=== PATIENT | female | born 1945 | race Caucasian/White ===

== ENCOUNTER 2019-11-30 13:27 | Inpatient (IN) ==
[2019-12-01] MEDS ORDERED: *HR* Dextrose 50 % in Water (Syg) 50 ML SYRINGE IVP PRN (19:11)
[2019-12-01] MEDS ORDERED: D5% in Water 1,000 ML IVC PRN (19:11)
[2019-12-01] MEDS ORDERED: Dextrose Gel 15 GM/37.5 ML TUBE PO PRN ×2 (19:11)
[2019-12-01 19:42] LABS: Basophils # 0.1 K/mcL (0.0-0.2); Basophils % 0.8 %; Eosinophils # 0.7 K/mcL (0.0-0.6); Eosinophils % 9.3 %; Hemoglobin 11.8 g/dL (11.5-15.4); Immature Granulocytes % 1.4 % (0-4); Lymphocytes # 1.8 K/mcL (0.6-4.6); Lymphocytes % 25.6 %; Mean Corpuscular HGB Conc 32.8 g/dL (31.6-35.5); Mean Corpuscular Volume 85.5 fL (83.0-100.0); Mean Platelet Volume 10.4 fL (9.4-12.4); Monocytes # 0.9 K/mcL (0.0-1.3); Neutrophils # 3.6 K/mcL (1.6-8.9); Platelet Count 259 K/mcL (140-400); Red Blood Count 4.21 M/mcL (3.82-4.97); Segmented Neutrophils % 50.9 %; White Blood Count 7.1 K/mcL (4.3-11.1)
[2019-12-01 19:52] LABS: Anisocytosis 1+ (Not Present); Platelet Estimate Normal (Normal)
[2019-12-01 19:58] LABS: BUN/Creatinine Ratio 27 (6-26); Blood Urea Nitrogen 25 mg/dL (8-23); Calcium 9.9 mg/dL (8.6-10.3); Carbon Dioxide 26 mEq/L (23-29); Chloride 98 mEq/L (98-107); Glucose 196 mg/dL (70-105); Osmolality,Calculated 284 (280-300); Potassium 4.1 mEq/L (3.5-5.1); Sodium 132 mEq/L (136-145); eGFR For African Americans > 60 (> 60); eGFR For Non-African Americans > 60 (> 60)
[2019-12-01] MEDS ORDERED: Insulin DETEMIR 100 UNIT/ML per UNIT SQ ONE (21:00)
[2019-12-01] MEDS ORDERED: Mag Hydrox/Al Hydrox/Simeth 30 ML UDC PO PRN (21:02)
[2019-12-01] MEDS: Apixaban 5 MG TABLET PO SCH (22:23)
[2019-12-01] MEDS: Insulin LISPRO 300 UNITS/3 ML VIAL SQ SCH (22:28)
[2019-12-01] MEDS: Nystatin POWDER 30 GM BOTTLE TP SCH (22:30)
[2019-12-02] MEDS: Insulin LISPRO 300 UNITS/3 ML VIAL SQ SCH ×4 (08:55→20:27)
[2019-12-02] MEDS ORDERED: hydroCHLOROthiazide 25 MG TABLET PO SCH (09:00)
[2019-12-02] MEDS ORDERED: Spironolactone 25 MG TABLET PO SCH (09:00)
[2019-12-02] MEDS: *HR* Metformin 500 MG TABLET PO SCH ×2 (10:03→17:02)
[2019-12-02] MEDS: cephALEXin 500 MG CAPSULE PO SCH ×2 (10:03→20:20)
[2019-12-02] MEDS: Aspirin 81 MG TAB.CHEW PO SCH (10:03)
[2019-12-02] MEDS: Apixaban 5 MG TABLET PO SCH ×2 (10:04→20:20)
[2019-12-02] MEDS: Fluconazole 100 MG TABLET PO SCH (10:04)
[2019-12-02] MEDS: Nystatin POWDER 30 GM BOTTLE TP SCH ×2 (10:11→20:22)
[2019-12-02] MEDS: Insulin DETEMIR 100 UNIT/ML X5UNITS SQ SCH (20:27)
[2019-12-02] MEDS ORDERED: 0.9 % Sodium Chloride 1,000 ML IV ONE (23:27)
[2019-12-03 05:40] LABS: Basophils # 0.1 K/mcL (0.0-0.2); Basophils % 0.5 %; Eosinophils % 9.8 %; Hematocrit 32.1 % (35.3-44.9); Hemoglobin 10.3 g/dL (11.5-15.4); Immature Granulocytes % 1.8 % (0-4); Lymphocytes % 28.5 %; Mean Corpuscular HGB Conc 32.1 g/dL (31.6-35.5); Mean Corpuscular Hemoglobin 27.6 pg (28.0-33.3); Mean Corpuscular Volume 86.1 fL (83.0-100.0); Mean Platelet Volume 10.9 fL (9.4-12.4); Monocytes # 1.1 K/mcL (0.0-1.3); Monocytes % 10.1 %; Neutrophils # 5.1 K/mcL (1.6-8.9); Platelet Count 249 K/mcL (140-400); Red Blood Count 3.73 M/mcL (3.82-4.97); Red Cell Distribution Width 18.8 % (11.5-14.5); Segmented Neutrophils % 49.3 %; White Blood Count 10.4 K/mcL (4.3-11.1)
[2019-12-03 05:58] LABS: Calcium 9.1 mg/dL (8.6-10.3); Potassium 3.8 mEq/L (3.5-5.1)
[2019-12-03] MEDS: Insulin LISPRO 300 UNITS/3 ML VIAL SQ SCH ×4 (07:36→20:20)
[2019-12-03] MEDS: Fluconazole 100 MG TABLET PO SCH (07:55)
[2019-12-03] MEDS: *HR* Metformin 500 MG TABLET PO SCH ×2 (07:55→17:14)
[2019-12-03] MEDS: cephALEXin 500 MG CAPSULE PO SCH ×2 (07:55→20:19)
[2019-12-03] MEDS: Aspirin 81 MG TAB.CHEW PO SCH (07:55)
[2019-12-03] MEDS: Apixaban 5 MG TABLET PO SCH ×2 (07:55→20:20)
[2019-12-03] MEDS: Nystatin POWDER 30 GM BOTTLE TP SCH ×2 (07:56→20:20)
[2019-12-03] MEDS: Insulin DETEMIR 100 UNIT/ML X5UNITS SQ SCH (20:20)
[2019-12-04 05:35] LABS: Basophils # 0.1 K/mcL (0.0-0.2); Basophils % 0.5 %; Eosinophils # 1.1 K/mcL (0.0-0.6); Eosinophils % 10.7 %; Hematocrit 34.1 % (35.3-44.9); Hemoglobin 10.9 g/dL (11.5-15.4); Lymphocytes # 2.4 K/mcL (0.6-4.6); Mean Corpuscular Hemoglobin 27.5 pg (28.0-33.3); Mean Corpuscular Volume 86.1 fL (83.0-100.0); Mean Platelet Volume 10.8 fL (9.4-12.4); Monocytes # 0.9 K/mcL (0.0-1.3); Monocytes % 8.8 %; Neutrophils # 5.4 K/mcL (1.6-8.9); Platelet Count 254 K/mcL (140-400); Red Blood Count 3.96 M/mcL (3.82-4.97); Red Cell Distribution Width 18.6 % (11.5-14.5)
[2019-12-04] MEDS: Insulin LISPRO 300 UNITS/3 ML VIAL SQ SCH ×4 (09:07→21:32)
[2019-12-04] MEDS: *HR* Metformin 500 MG TABLET PO SCH ×2 (09:08→18:22)
[2019-12-04] MEDS: Nystatin POWDER 30 GM BOTTLE TP SCH ×2 (09:08→21:33)
[2019-12-04] MEDS: Apixaban 5 MG TABLET PO SCH ×2 (09:08→21:32)
[2019-12-04] MEDS: cephALEXin 500 MG CAPSULE PO SCH ×2 (09:08→21:32)
[2019-12-04] MEDS: Fluconazole 100 MG TABLET PO SCH (09:08)
[2019-12-04] MEDS: Aspirin 81 MG TAB.CHEW PO SCH (09:08)
[2019-12-04] MEDS: Insulin DETEMIR 100 UNIT/ML X5UNITS SQ SCH (21:33)
[2019-12-05] MEDS: Insulin LISPRO 300 UNITS/3 ML VIAL SQ SCH ×4 (08:58→21:11)
[2019-12-05] MEDS: *HR* Metformin 500 MG TABLET PO SCH ×2 (09:03→17:17)
[2019-12-05] MEDS: Apixaban 5 MG TABLET PO SCH ×2 (09:03→21:11)
[2019-12-05] MEDS: Aspirin 81 MG TAB.CHEW PO SCH (09:03)
[2019-12-05] MEDS: Nystatin POWDER 30 GM BOTTLE TP SCH ×2 (09:04→21:12)
[2019-12-05] MEDS: Insulin DETEMIR 100 UNIT/ML X5UNITS SQ SCH (21:11)
[2019-12-06] MEDS: Aspirin 81 MG TAB.CHEW PO SCH (08:13)
[2019-12-06] MEDS: Nystatin POWDER 30 GM BOTTLE TP SCH ×2 (08:13→20:42)
[2019-12-06] MEDS: Apixaban 5 MG TABLET PO SCH ×2 (08:13→20:42)
[2019-12-06] MEDS: *HR* Metformin 500 MG TABLET PO SCH (08:13)
[2019-12-06] MEDS: Insulin LISPRO 300 UNITS/3 ML VIAL SQ SCH ×2 (14:26→20:42)
[2019-12-06] MEDS: Insulin DETEMIR 100 UNIT/ML X5UNITS SQ SCH (20:45)
[2019-12-07] MEDS: Insulin LISPRO 300 UNITS/3 ML VIAL SQ SCH ×4 (08:07→20:39)
[2019-12-07] MEDS: *HR* Metformin 500 MG TABLET PO SCH ×3 (08:07→17:18)
[2019-12-07] MEDS: Aspirin 81 MG TAB.CHEW PO SCH (09:40)
[2019-12-07] MEDS: Nystatin POWDER 30 GM BOTTLE TP SCH ×2 (09:40→19:42)
[2019-12-07] MEDS: Apixaban 5 MG TABLET PO SCH ×2 (09:40→19:41)
[2019-12-07] MEDS: Insulin DETEMIR 100 UNIT/ML X5UNITS SQ SCH (19:42)
[2019-12-08] MEDS: Insulin LISPRO 300 UNITS/3 ML VIAL SQ SCH ×4 (07:59→20:28)
[2019-12-08 08:17] LABS: Bilirubin,Urine Negative (Negative); Blood,Urine Small (Negative); Clarity,Urine Clear (Clear); Color,Urine Yellow (Yellow); Glucose,Urine (UA) Normal (Normal); Ketones,Urine Negative (Negative); Leukocyte Esterase,Urine Small (Negative); Nitrite,Urine Positive (Negative); Protein,Urine Negative (Neg-Trace); Urobilinogen,Urine Normal (Normal)
[2019-12-08 08:28] LABS: Bacteria,Urine Moderate per hpf (None-Few); Squamous Epithelial Cell,Urine Few per lpf (None-Few)
[2019-12-08] MEDS: Apixaban 5 MG TABLET PO SCH ×2 (08:49→20:32)
[2019-12-08] MEDS: Nystatin POWDER 30 GM BOTTLE TP SCH ×2 (08:50→20:29)
[2019-12-08] MEDS: *HR* Metformin 500 MG TABLET PO SCH ×2 (08:50→17:01)
[2019-12-08] MEDS: Aspirin 81 MG TAB.CHEW PO SCH (08:50)
[2019-12-08] MEDS: Insulin DETEMIR 100 UNIT/ML X5UNITS SQ SCH (20:32)
[2019-12-08] MEDS: cefTRIAXone 1,000 MG in 0.9 % Sodium Chloride Mini Bag 100 ML IVPB SCH (22:03)
[2019-12-09] MEDS: Insulin LISPRO 300 UNITS/3 ML VIAL SQ SCH ×4 (07:41→22:00)
[2019-12-09] MEDS: Apixaban 5 MG TABLET PO SCH ×2 (08:55→22:00)
[2019-12-09] MEDS: Aspirin 81 MG TAB.CHEW PO SCH (08:56)
[2019-12-09] MEDS: *HR* Metformin 500 MG TABLET PO SCH ×2 (08:56→16:39)
[2019-12-09] MEDS: Nystatin POWDER 30 GM BOTTLE TP SCH ×2 (09:01→22:00)
[2019-12-09 12:50] LABS: BUN/Creatinine Ratio 29 (6-26); Blood Urea Nitrogen 24 mg/dL (8-23); Calcium 10.4 mg/dL (8.6-10.3); Carbon Dioxide 25 mEq/L (23-29); Chloride 103 mEq/L (98-107); Glucose 99 mg/dL (70-105); Osmolality,Calculated 292 (280-300); Potassium 4.6 mEq/L (3.5-5.1); Sodium 139 mEq/L (136-145); eGFR For African Americans > 60 (> 60); eGFR For Non-African Americans > 60 (> 60)
[2019-12-09 13:26] LABS: Basophils # 0.1 K/mcL (0.0-0.2); Basophils % 0.8 %; Eosinophils # 0.8 K/mcL (0.0-0.6); Eosinophils % 8.5 %; Hematocrit 43.4 % (35.3-44.9); Hemoglobin 13.6 g/dL (11.5-15.4); Immature Granulocytes % 0.9 % (0-4); Lymphocytes # 2.1 K/mcL (0.6-4.6); Lymphocytes % 22.7 %; Mean Corpuscular HGB Conc 31.3 g/dL (31.6-35.5); Mean Corpuscular Volume 89.3 fL (83.0-100.0); Mean Platelet Volume 11.4 fL (9.4-12.4); Monocytes # 0.6 K/mcL (0.0-1.3); Monocytes % 6.9 %; Neutrophils # 5.5 K/mcL (1.6-8.9); Platelet Count 328 K/mcL (140-400); Red Blood Count 4.86 M/mcL (3.82-4.97); Red Cell Distribution Width 18.9 % (11.5-14.5); Segmented Neutrophils % 60.2 %; White Blood Count 9.1 K/mcL (4.3-11.1)
[2019-12-09] MEDS: Insulin DETEMIR 100 UNIT/ML X5UNITS SQ SCH (22:00)
[2019-12-09] MEDS: cefTRIAXone 1,000 MG in 0.9 % Sodium Chloride Mini Bag 100 ML IVPB SCH (22:00)
[2019-12-10] MEDS: Insulin LISPRO 300 UNITS/3 ML VIAL SQ SCH ×4 (07:39→21:42)
[2019-12-10] MEDS: *HR* Metformin 500 MG TABLET PO SCH ×2 (09:00→17:44)
[2019-12-10] MEDS: Aspirin 81 MG TAB.CHEW PO SCH (09:00)
[2019-12-10] MEDS: Apixaban 5 MG TABLET PO SCH ×2 (09:00→21:42)
[2019-12-10] MEDS: Nystatin POWDER 30 GM BOTTLE TP SCH ×2 (09:01→21:42)
[2019-12-10] MEDS: Insulin DETEMIR 100 UNIT/ML X5UNITS SQ SCH (21:42)
[2019-12-10] MEDS: cefTRIAXone 1,000 MG in 0.9 % Sodium Chloride Mini Bag 100 ML IVPB SCH (21:42)
[2019-12-11] MEDS: Nystatin POWDER 30 GM BOTTLE TP SCH ×2 (07:50→20:12)
[2019-12-11] MEDS: Insulin LISPRO 300 UNITS/3 ML VIAL SQ SCH ×4 (08:27→20:00)
[2019-12-11] MEDS: Aspirin 81 MG TAB.CHEW PO SCH (08:38)
[2019-12-11] MEDS: *HR* Metformin 500 MG TABLET PO SCH ×2 (08:38→17:18)
[2019-12-11] MEDS: Apixaban 5 MG TABLET PO SCH ×2 (08:38→20:12)
[2019-12-11] MEDS: Insulin DETEMIR 100 UNIT/ML X5UNITS SQ SCH (20:12)
[2019-12-11] MEDS: cefTRIAXone 1,000 MG in 0.9 % Sodium Chloride Mini Bag 100 ML IVPB SCH (20:12)
[2019-12-12] MEDS: Insulin LISPRO 300 UNITS/3 ML VIAL SQ SCH ×4 (08:07→20:13)
[2019-12-12] MEDS: Apixaban 5 MG TABLET PO SCH ×2 (08:10→20:20)
[2019-12-12] MEDS: Aspirin 81 MG TAB.CHEW PO SCH (08:10)
[2019-12-12] MEDS: *HR* Metformin 500 MG TABLET PO SCH ×2 (08:11→17:04)
[2019-12-12] MEDS: Nystatin POWDER 30 GM BOTTLE TP SCH ×2 (08:11→20:21)
[2019-12-12] MEDS: Insulin DETEMIR 100 UNIT/ML X5UNITS SQ SCH (20:20)
[2019-12-12] MEDS: cefTRIAXone 1,000 MG in 0.9 % Sodium Chloride Mini Bag 100 ML IVPB SCH (20:21)
[2019-12-13] MEDS: Insulin LISPRO 300 UNITS/3 ML VIAL SQ SCH ×4 (07:57→21:32)
[2019-12-13] MEDS: Apixaban 5 MG TABLET PO SCH ×2 (08:35→21:35)
[2019-12-13] MEDS: Aspirin 81 MG TAB.CHEW PO SCH (08:35)
[2019-12-13] MEDS: *HR* Metformin 500 MG TABLET PO SCH ×2 (08:36→18:00)
[2019-12-13] MEDS: Nystatin POWDER 30 GM BOTTLE TP SCH ×2 (10:14→21:32)
[2019-12-13] MEDS: Fluconazole 100 MG TABLET PO SCH (18:01)
[2019-12-13] MEDS: cefTRIAXone 1,000 MG in 0.9 % Sodium Chloride Mini Bag 100 ML IVPB SCH (21:36)
[2019-12-13] MEDS: Insulin DETEMIR 100 UNIT/ML X5UNITS SQ SCH (21:37)
[2019-12-14] MEDS: Insulin LISPRO 300 UNITS/3 ML VIAL SQ SCH ×4 (07:51→20:19)
[2019-12-14] MEDS: Nystatin POWDER 30 GM BOTTLE TP SCH ×2 (08:34→20:26)
[2019-12-14] MEDS: *HR* Metformin 500 MG TABLET PO SCH ×2 (08:56→17:21)
[2019-12-14] MEDS: Apixaban 5 MG TABLET PO SCH ×2 (08:56→20:19)
[2019-12-14] MEDS: Aspirin 81 MG TAB.CHEW PO SCH (08:56)
[2019-12-14] MEDS: Fluconazole 100 MG TABLET PO SCH (08:56)
[2019-12-14] MEDS: cefTRIAXone 1,000 MG in 0.9 % Sodium Chloride Mini Bag 100 ML IVPB SCH (20:16)
[2019-12-14] MEDS: Insulin DETEMIR 100 UNIT/ML X5UNITS SQ SCH (20:19)
[2019-12-15] MEDS: Fluconazole 100 MG TABLET PO SCH (06:53)
[2019-12-15] MEDS: *HR* Metformin 500 MG TABLET PO SCH ×2 (06:55→18:27)
[2019-12-15] MEDS: Apixaban 5 MG TABLET PO SCH ×2 (06:55→22:17)
[2019-12-15] MEDS: Aspirin 81 MG TAB.CHEW PO SCH (06:56)
[2019-12-15] MEDS: Insulin LISPRO 300 UNITS/3 ML VIAL SQ SCH ×4 (09:53→20:41)
[2019-12-15] MEDS: Nystatin POWDER 30 GM BOTTLE TP SCH ×2 (09:54→22:33)
[2019-12-15] MEDS: Insulin DETEMIR 100 UNIT/ML X5UNITS SQ SCH (22:18)
[2019-12-16] MEDS: Insulin LISPRO 300 UNITS/3 ML VIAL SQ SCH ×4 (08:53→20:45)
[2019-12-16] MEDS: Apixaban 5 MG TABLET PO SCH ×2 (08:53→20:37)
[2019-12-16] MEDS: *HR* Metformin 500 MG TABLET PO SCH ×2 (08:53→17:57)
[2019-12-16] MEDS: Fluconazole 100 MG TABLET PO SCH (08:53)
[2019-12-16] MEDS: Aspirin 81 MG TAB.CHEW PO SCH (08:53)
[2019-12-16] MEDS: Nystatin POWDER 30 GM BOTTLE TP SCH ×2 (08:54→21:00)
[2019-12-16] MEDS: Insulin DETEMIR 100 UNIT/ML X5UNITS SQ SCH (20:59)
[2019-12-17] MEDS: Insulin LISPRO 300 UNITS/3 ML VIAL SQ SCH ×4 (07:35→21:24)
[2019-12-17] MEDS: Nystatin POWDER 30 GM BOTTLE TP SCH ×2 (08:34→20:28)
[2019-12-17] MEDS: Aspirin 81 MG TAB.CHEW PO SCH (08:57)
[2019-12-17] MEDS: Apixaban 5 MG TABLET PO SCH ×2 (08:57→20:27)
[2019-12-17] MEDS: Fluconazole 100 MG TABLET PO SCH (08:58)
[2019-12-17] MEDS: *HR* Metformin 500 MG TABLET PO SCH ×2 (08:58→17:04)
[2019-12-17] MEDS: Insulin DETEMIR 100 UNIT/ML X5UNITS SQ SCH (21:44)
[2019-12-18] MEDS ORDERED: Furosemide 40 MG/4 ML VIAL IVP ONE
[2019-12-18 06:36] LABS: Basophils # 0.1 K/mcL (0.0-0.2); Basophils % 0.6 %; Eosinophils # 0.3 K/mcL (0.0-0.6); Eosinophils % 3.5 %; Hematocrit 32.4 % (35.3-44.9); Hemoglobin 10.3 g/dL (11.5-15.4); Immature Granulocytes % 0.6 % (0-4); Lymphocytes # 1.8 K/mcL (0.6-4.6); Lymphocytes % 20.2 %; Mean Corpuscular HGB Conc 31.8 g/dL (31.6-35.5); Mean Corpuscular Hemoglobin 28.7 pg (28.0-33.3); Mean Corpuscular Volume 90.3 fL (83.0-100.0); Mean Platelet Volume 11.6 fL (9.4-12.4); Monocytes # 0.8 K/mcL (0.0-1.3); Monocytes % 9.4 %; Neutrophils # 5.7 K/mcL (1.6-8.9); Platelet Count 262 K/mcL (140-400); Red Blood Count 3.59 M/mcL (3.82-4.97); Red Cell Distribution Width 17.6 % (11.5-14.5); Segmented Neutrophils % 65.7 %; White Blood Count 8.7 K/mcL (4.3-11.1)
[2019-12-18 06:50] LABS: BUN/Creatinine Ratio 33 (6-26); Blood Urea Nitrogen 25 mg/dL (8-23); Carbon Dioxide 26 mEq/L (23-29); Chloride 103 mEq/L (98-107); Glucose 139 mg/dL (70-105); Osmolality,Calculated 293 (280-300); Potassium 4.2 mEq/L (3.5-5.1); Sodium 138 mEq/L (136-145); eGFR For African Americans > 60 (> 60); eGFR For Non-African Americans > 60 (> 60)
[2019-12-18] MEDS: Insulin LISPRO 300 UNITS/3 ML VIAL SQ SCH ×4 (07:58→20:42)
[2019-12-18] MEDS: Apixaban 5 MG TABLET PO SCH ×2 (08:41→20:24)
[2019-12-18] MEDS: Fluconazole 100 MG TABLET PO SCH (08:42)
[2019-12-18] MEDS: *HR* Metformin 500 MG TABLET PO SCH ×2 (08:42→16:38)
[2019-12-18] MEDS: Aspirin 81 MG TAB.CHEW PO SCH (08:42)
[2019-12-18] MEDS: Nystatin POWDER 30 GM BOTTLE TP SCH ×2 (08:45→20:24)
[2019-12-18] MEDS ORDERED: Furosemide 40 MG in 0.9 % Sodium Chloride 50 ML IV SCH (13:00)
[2019-12-18] MEDS: Furosemide 40 MG/4 ML VIAL IVP SCH ×2 (14:41→20:24)
[2019-12-18] MEDS: Insulin DETEMIR 100 UNIT/ML X5UNITS SQ SCH (20:24)
[2019-12-19] MEDS: Insulin LISPRO 300 UNITS/3 ML VIAL SQ SCH ×4 (08:30→20:59)
[2019-12-19] MEDS: Furosemide 40 MG/4 ML VIAL IVP SCH (08:39)
[2019-12-19] MEDS: Apixaban 5 MG TABLET PO SCH ×2 (08:39→21:26)
[2019-12-19] MEDS: *HR* Metformin 500 MG TABLET PO SCH ×2 (08:40→17:05)
[2019-12-19] MEDS: Aspirin 81 MG TAB.CHEW PO SCH (08:40)
[2019-12-19] MEDS: Fluconazole 100 MG TABLET PO SCH (08:40)
[2019-12-19] MEDS: Nystatin POWDER 30 GM BOTTLE TP SCH ×2 (08:40→21:27)
[2019-12-19] MEDS: Insulin DETEMIR 100 UNIT/ML X5UNITS SQ SCH (21:01)
[2019-12-20] MEDS: Insulin LISPRO 300 UNITS/3 ML VIAL SQ SCH ×4 (08:07→20:17)
[2019-12-20] MEDS: Fluconazole 100 MG TABLET PO SCH (08:08)
[2019-12-20] MEDS: *HR* Metformin 500 MG TABLET PO SCH ×2 (08:08→17:03)
[2019-12-20] MEDS: Aspirin 81 MG TAB.CHEW PO SCH (08:09)
[2019-12-20] MEDS: Nystatin POWDER 30 GM BOTTLE TP SCH ×2 (08:09→20:20)
[2019-12-20] MEDS: Apixaban 5 MG TABLET PO SCH ×2 (10:04→20:08)
[2019-12-20] MEDS: Insulin DETEMIR 100 UNIT/ML X5UNITS SQ SCH (20:16)
[2019-12-21] MEDS: Insulin LISPRO 300 UNITS/3 ML VIAL SQ SCH ×4 (08:39→20:03)
[2019-12-21] MEDS: Fluconazole 100 MG TABLET PO SCH (08:40)
[2019-12-21] MEDS: Nystatin POWDER 30 GM BOTTLE TP SCH ×2 (08:40→20:20)
[2019-12-21] MEDS: Apixaban 5 MG TABLET PO SCH ×2 (08:40→20:16)
[2019-12-21] MEDS: *HR* Metformin 500 MG TABLET PO SCH ×2 (08:40→17:19)
[2019-12-21] MEDS: Aspirin 81 MG TAB.CHEW PO SCH (08:40)
[2019-12-21] MEDS: Insulin DETEMIR 100 UNIT/ML X5UNITS SQ SCH (20:19)
[2019-12-22] MEDS: Insulin LISPRO 300 UNITS/3 ML VIAL SQ SCH ×4 (08:13→22:37)
[2019-12-22] MEDS: *HR* Metformin 500 MG TABLET PO SCH ×2 (08:18→17:31)
[2019-12-22] MEDS: Nystatin POWDER 30 GM BOTTLE TP SCH ×2 (08:18→22:45)
[2019-12-22] MEDS: hydroCHLOROthiazide 25 MG TABLET PO SCH (08:18)
[2019-12-22] MEDS: Fluconazole 100 MG TABLET PO SCH (08:18)
[2019-12-22] MEDS: Apixaban 5 MG TABLET PO SCH ×2 (08:18→22:42)
[2019-12-22] MEDS: Aspirin 81 MG TAB.CHEW PO SCH (08:18)
[2019-12-22] MEDS: Insulin DETEMIR 100 UNIT/ML X5UNITS SQ SCH (22:43)
[2019-12-23 06:35] LABS: BUN/Creatinine Ratio 31 (6-26); Blood Urea Nitrogen 26 mg/dL (8-23); Calcium 10.7 mg/dL (8.6-10.3); Carbon Dioxide 27 mEq/L (23-29); Chloride 97 mEq/L (98-107); Glucose 116 mg/dL (70-105); Osmolality,Calculated 284 (280-300); Potassium 3.9 mEq/L (3.5-5.1); Sodium 134 mEq/L (136-145); eGFR For African Americans > 60 (> 60); eGFR For Non-African Americans > 60 (> 60)
[2019-12-23] MEDS: Insulin LISPRO 300 UNITS/3 ML VIAL SQ SCH ×4 (07:27→21:57)
[2019-12-23] MEDS: hydroCHLOROthiazide 25 MG TABLET PO SCH (08:24)
[2019-12-23] MEDS: *HR* Metformin 500 MG TABLET PO SCH ×2 (08:24→17:52)
[2019-12-23] MEDS: Aspirin 81 MG TAB.CHEW PO SCH (08:24)
[2019-12-23] MEDS: Apixaban 5 MG TABLET PO SCH ×2 (08:24→21:57)
[2019-12-23] MEDS: Nystatin POWDER 30 GM BOTTLE TP SCH ×2 (08:24→21:59)
[2019-12-23 09:55] LABS: Estimated Average Glucose 111 mg/dl
[2019-12-23] MEDS: Insulin DETEMIR 100 UNIT/ML X5UNITS SQ SCH (21:57)
[2019-12-24 08:27] VITALS: BP 144/78
[2019-12-24] MEDS: Insulin LISPRO 300 UNITS/3 ML VIAL SQ SCH ×2 (09:06→12:16)
[2019-12-24] MEDS: Aspirin 81 MG TAB.CHEW PO SCH (09:08)
[2019-12-24] MEDS: *HR* Metformin 500 MG TABLET PO SCH (09:08)
[2019-12-24] MEDS: Apixaban 5 MG TABLET PO SCH (09:08)
[2019-12-24] MEDS: hydroCHLOROthiazide 25 MG TABLET PO SCH (09:08)
[2019-12-24] MEDS: Nystatin POWDER 30 GM BOTTLE TP SCH (09:09)
== END 2019-12-24 12:31 | disposition home health service (06) | DRG 56 ==
LOC: INPGRE 12-01 17:10
PROVIDERS: ADMIT Family Medicine; ATTEND Family Medicine